=== PATIENT | female | born 1995 | race Two or more races ===

== ENCOUNTER 2023-02-22 10:37 | Outpatient (CLI) | payer OTHER | END 2023-02-22 10:38 | disposition home or self-care (01) | LOC: PRENATAL 10:37 | PROVIDERS: ATTEND Obstetrics & Gynecology Maternal & Fetal Medicine | DX: O36.80X0 Pregnancy with inconclusive fetal viability, not applicable or unspecified (principal); Z36.82 Encounter for antenatal screening for nuchal translucency; Z36.9 Encounter for antenatal screening, unspecified; Z3A.11 11 weeks gestation of pregnancy ==

== ENCOUNTER 2023-06-18 10:54 | Outpatient (CLI) | payer OTHER | END 2023-06-18 10:55 | disposition home or self-care (01) | LOC: PRENATAL 10:54 | PROVIDERS: ATTEND Obstetrics & Gynecology Maternal & Fetal Medicine | DX: O26.849 Uterine size-date discrepancy, unspecified trimester (principal); O43.90 Unspecified placental disorder, unspecified trimester; Z3A.28 28 weeks gestation of pregnancy ==

== ENCOUNTER → 2023-07-30 12:55 | Outpatient (CLI) | payer OTHER | END | disposition home or self-care (01) | LOC: PRENATAL 12:55 | PROVIDERS: ATTEND Obstetrics & Gynecology Maternal & Fetal Medicine | DX: O26.849 Uterine size-date discrepancy, unspecified trimester (principal); O36.8199 Decreased fetal movements, unspecified trimester, other fetus; O43.90 Unspecified placental disorder, unspecified trimester; Z3A.34 34 weeks gestation of pregnancy ==

== ENCOUNTER 2023-10-19 17:32 | Emergency (ER) | payer OTHER ==
[~2023-10-19] VITALS: Ht 162.6 cm; Wt 61.2 kg
[~2023-10-19 17:32] MED LIST: FOLIC ACID0.8 M1 PO; PRENATAL CAPLE1 EAC1 PO
[2023-10-19] MEDS ORDERED: CLINDAMYCIN PHOSPHATE 150 MG/ML (300mg) IV STA (19:50)
[2023-10-19] MEDS ORDERED: IBUprofen 600 MG TABLET PO STA (19:50)
[2023-10-19] MEDS ORDERED: CLINDAMYCIN PHOSPHATE 150 MG/ML (300mg) ONE (19:58)
[2023-10-19] MEDS ORDERED: IBUprofen 20 MG/ML BLIST.PACK (5ML) PO ONE (20:12)
[2023-10-19 20:14] LABS: HEMATOCRIT 32.1 % (36.0-45.00); HEMOGLOBIN 10.6 g/dL (12.0-15.00); MEAN CELL VOLUME 83.3 fL (80.00-100.00); MEAN CORPUSCULAR HEMOGLOBIN 27.4 pg (27.00-32.0); MEAN CORPUSCULAR HGB CONC 32.9 g/dl (32.0-36.0); PLATELET COUNT 481 K/uL (150-450); RED BLOOD COUNT 3.85 M/uL (4.00-6.00); RED CELL DISTRIBUTION WIDTH 15.5 % (11.5-14.5)
[2023-10-19] MEDS ORDERED: IBU800 MG PO (21:11)
== END 2023-10-19 21:30 | disposition home or self-care (01) ==
LOC: ER 17:33
PROVIDERS: General Practice
DX: N61.0 Mastitis without abscess (principal)

== ENCOUNTER 2023-11-05 04:14 | Emergency (ER) | payer OTHER ==
[~2023-11-05] VITALS: Ht 162.6 cm; Wt 64.4 kg
[~2023-11-05 04:14] MED LIST changes: +IBU800 MG PO
[2023-11-05] MEDS ORDERED: RINGERS SOLUTION,LACTATED 1,000 ML IV STA (05:25)
[2023-11-05] MEDS ORDERED: KETOROLAC TROMETHAMINE 30 MG VIAL IV STA (05:26)
[2023-11-05] MEDS ORDERED: PROMETHAZINE HCL 50 MG/ML AMPUL IM STA (05:27)
[2023-11-05] MEDS ORDERED: MEPERIDINE HCL/PF 50 MG/ML VIAL IM STA (05:27)
[2023-11-05] MEDS ORDERED: CLINDAMYCIN PHOSPHATE 150 MG/ML (900mg) IV STA (05:28)
[2023-11-05 06:12] LABS: ERYTHROCYTE SEDIMENTATION RATE 92 mm/hr; HEMATOCRIT 32.4 % (36.0-45.00); HEMOGLOBIN 10.7 g/dL (12.0-15.00); MEAN CELL VOLUME 79.5 fL (80.00-100.00); MEAN CORPUSCULAR HEMOGLOBIN 26.4 pg (27.00-32.0); MEAN CORPUSCULAR HGB CONC 33.2 g/dl (32.0-36.0); PLATELET COUNT 521 K/uL (150-450); RED BLOOD COUNT 4.07 M/uL (4.00-6.00); RED CELL DISTRIBUTION WIDTH 16.2 % (11.5-14.5)
[2023-11-05 06:30] LABS: CALCIUM 9.2 mg/dL (8.5-10.1); CREATININE SERUM 0.54 mg/dL (0.55-1.02); GFR 135.42; POTASSIUM 3.77 mEq/L (3.5-5.1)
[2023-11-05] MEDS ORDERED: OxyCODONE HCL/APAP UD (PERCOCET) PO STA (07:34)
[2023-11-05] MEDS ORDERED: CEFTRIAXONE SODIUM 2,000 MG VIAL IV STA (08:35)
== END 2023-11-05 09:52 | disposition home or self-care (01) ==
LOC: ER 04:15
DX: N61.1 Abscess of the breast and nipple (principal)